=== PATIENT | male | born 1995 | race African-American/Black ===

== ENCOUNTER 2020-07-29 22:03 | Emergency (ER) | payer OTHER ==
[2020-07-29 22:48] LABS: #Basophils 0.2 10x3/uL (0.0-0.2); #Eosinphils 0.3 10x3/uL (0.0-0.5); %Basophils 1.8 % (0.0-2.0); %Eosinophils 3.2 % (0.0-6.0); %Lymphocytes 29.1 % (18.0-47.0); %Monocytes 10.3 % (0.0-10.0); %Neutrophils 52.2 % (40.0-75.0); Hemoglobin 8.8 g/dL (13.5-17.5); Mean Corpuscular HGB CONC 36.1 g/dL (32.0-36.0); Mean Corpuscular Hemoglobin 38.3 pg (27.0-33.0); Mean Corpuscular Volume 106.1 fl (81.2-95.1); Mean Platelet Volume 9.6 fl (7.4-10.4); Platelet Count 424 10x3/uL (150-450); RBC Distribution Width 21.2 % (11.5-14.5); White Blood Cell (WBC) Count 9.6 10x3/uL (3.5-10.5)
[2020-07-29 23:12] LABS: ALT (SGPT) 30 U/L (8-55); AST (SGOT) 42 U/L (5-34); Alkaline Phosphatase 183 U/L (40-110); Anion Gap 13 mmol/L (10-20); BUN (Urea Nitrogen) 6 mg/dL (8.9-20.6); Bilirubin, Total 3.1 mg/dL (0.2-1.2); Calc. Creatinine Clearance 0 mL/min (70-130); Calcium 8.5 mg/dL (7.8-10.44); Carbon Dioxide 22 mmol/L (22-29); Chloride 108 mmol/L (98-107); Globulin 3.2 g/dL (2.4-3.5); Glucose 104 mg/dL (70-105); Potassium 4.7 mmol/L (3.5-5.1); Protein, Total 7.2 g/dL (6.0-8.3); Sodium 138 mmol/L (136-145)
[2020-07-29] MEDS ORDERED: Morphine 4 MG/ML VIAL ONE (23:36)
[2020-07-30] MEDS ORDERED: Acetaminophen 500 MG TAB ONE (00:59)
== END 2020-07-30 00:01 ==
LOC: CSHERS 22:03
DX: D57.00 Hb-SS disease with crisis, unspecified (principal)
CPT/HCPCS: 80053; 85025; 85046; 93005; 96374; J2270

== ENCOUNTER 2020-07-30 08:06 | Emergency (ER) | payer OTHER ==
[2020-07-30] MEDS ORDERED: Ondansetron PF 4 MG/2 ML Vial ONE (08:15)
[2020-07-30] MEDS ORDERED: Morphine 4 MG/ML VIAL ONE ×2 (08:15→10:21)
== END 2020-07-30 11:40 ==
LOC: EEVIPCON 08:06 → CSHERS 08:06
DX: D57.00 Hb-SS disease with crisis, unspecified (principal)
CPT/HCPCS: 71275; 84484; 93005; 96374; 96375; 96376; J2270; J2405